=== PATIENT | male | born 1985 | race Caucasian/White ===

== ENCOUNTER 2019-03-19 07:29 | Emergency (ER) | payer OTHER ==
[2019-03-19 07:47] VITALS: BP 115/80
--- NOTE | 2019-03-19 08:04 | UC ---
Throat Pain/Nasal Umberto HPI - HPI Summary HPI Summary: sore throat x 5 day nasal congestion , dry cough with chest tightness sinus pain and pressure pnd, no fever, + chills has been taking otc cold meds with no improvements - History of Current Complaint Chief Complaint: UCGeneralIllness Stated Complaint: MEEK,CONGESTION,THROAT, COUGH Time Seen by Provider: 03/19/19 07:46 Hx Obtained From: Patient Onset/Duration: Gradual Onset, Lasting Days - 5, Still Present Severity: Moderate Pain Intensity: 0 Cough: Nonproductive Associated Signs & Symptoms: Positive: Nasal Discharge. Negative: Drooling, Hoarseness, Sinus Discomfort, Fever, Vomiting, Rash - Allergies/Home Medications Allergies/Adverse Reactions: Allergies Allergy/AdvReac Type Severity Reaction Status Date / Time Sulfa (Sulfonamide Allergy Unknown Rash Verified 03/19/19 07:47 Antibiotics) Home Medications: Home Medications Aspirin/Acetaminophen/Caffeine [Excedrin Migraine Caplet] 1 tab PO ONCE [History Confirmed 03/19/19] Chlorphenir/Phenyleph/Aspirin [[place] Plus Cold Tab Eff] 1 tab PO ONCE [History Confirmed 03/19/19] PMH/Surg Hx/FS Hx/Imm Hx Endocrine History: Diabetes, Thyroid Disease, Hypothyroidism - Surgical History Surgical History: Yes Surgery Procedure, Year, and Place: WISDOM TEETH EXTRACTIONS - Family History Known Family History: Positive: Hypertension - Social History Alcohol Use: Occasionally Substance Use Type: Marijuana Substance Use Comment - Amount & Last Used: occasionally Smoking Status (MU): Former Smoker Type: Cigarettes Amount Used/How Often: 3 CIGS PER DAY When Did the Patient Quit Smoking/Using Tobacco: September 2018 Review of Systems All Other Systems Reviewed And Are Negative: Yes Constitutional: Positive: Chills, Fatigue Skin: Positive: Negative Eyes: Positive: Negative ENT: Positive: Sore Throat, Nasal Discharge Respiratory: Positive: Cough Cardiovascular: Positive: Negative Is Patient Immunocompromised?: No Physical Exam Triage Information Reviewed: Yes Appearance: Well-Appearing, No Pain Distress, Well-Nourished Vital Signs: Initial Vital Signs Temp 97.8 F 03/19/19 07:42 Pulse 67 03/19/19 07:42 Resp 16 03/19/19 07:42 BP 115/80 03/19/19 07:42 Pulse Ox 100 03/19/19 07:42 Vital Signs Reviewed: Yes Eye Exam: Normal Eyes: Positive: Conjunctiva Clear ENT: Positive: Normal ENT inspection, Hearing grossly normal, Pharyngeal erythema, Nasal drainage, TMs normal. Negative: TM bulging, TM dull, TM red, Tonsillar swelling, Tonsillar exudate Neck: Positive: Supple, Nontender, No Lymphadenopathy Respiratory: Positive: Chest non-tender, Lungs clear, Normal breath sounds Cardiovascular: Positive: RRR, No Murmur, Pulses Normal Skin Exam: Normal Throat Pain/Nasal Course/Dx - Differential Dx/Diagnosis Provider Diagnosis: Pharyngitis Discharge - Sign-Out/Discharge Documenting (check all that apply): Patient Departure All imaging exams completed and their final reports reviewed: No Studies - Discharge Plan Condition: Stable Disposition: HOME Patient Education Materials: Upper Respiratory Infection (ED) Referrals: No Primary Care Phys,NOPCP [Primary Care Provider] - If Needed - Billing Disposition and Condition Condition: STABLE Disposition: Home
== END 2019-03-19 08:28 | disposition home or self-care (01) ==
LOC: UCCORT 07:29
DX: J02.9 Acute pharyngitis, unspecified (principal); Z88.2 Allergy status to sulfonamides; Z87.891 Personal history of nicotine dependence
CPT/HCPCS: 87651; 99211; G0463

== ENCOUNTER 2019-05-17 10:33 | Emergency (ER) | payer SELFPAY ==
[2019-05-17 12:07] VITALS: BP 117/90
--- NOTE | 2019-05-17 12:34 | UC ---
General HPI - HPI Summary HPI Summary: 33 yo insulin dependent diabetic with onset of malaise yesterday with increased fingerstick to 407, left work to manage this with additional insulin and fluids. Feels stable now, without any focus of infection, but needs a note for work absence and fitness to return to work. Current glucose is around 200 with decreased urinary ketones. Currently fatigued, but no fever, vomiting, dizziness, abdominal pain or cough. Management of diabetes with [facility]. - History of Current Complaint Chief Complaint: UCGeneralIllness Stated Complaint: TYPE 1 DIABETIC-CHECK GLUCOSE FOR WORK Time Seen by Provider: 05/17/19 12:24 Hx Obtained From: Patient Onset/Duration: Gradual Onset, Lasting Hours - about 36 Onset Severity: Moderate Current Severity: Mild Pain Intensity: 0 Associated Signs & Symptoms: Negative: Abdominal Pain, Back Pain, Cough, Dizziness, Dysuria, Headache, Nausea, Syncope - Allergy/Home Medications Allergies/Adverse Reactions: Allergies Allergy/AdvReac Type Severity Reaction Status Date / Time Sulfa (Sulfonamide Allergy Unknown Rash Verified 05/17/19 11:54 Antibiotics) Home Medications: Home Medications Ubidecarenone/Vitamin E [Co Q-10 50 mg Softgel] 1 each PO DAILY 05/17/19 [ History Confirmed 05/17/19] PMH/Surg Hx/FS Hx/Imm Hx Endocrine History: Diabetes - Surgical History Surgical History: Yes Surgery Procedure, Year, and Place: WISDOM TEETH EXTRACTIONS - Family History Known Family History: Positive: Hypertension, Diabetes - GM has type 2 - Social History Occupation: Employed Full-time Alcohol Use: Occasionally Substance Use Type: Marijuana Substance Use Comment - Amount & Last Used: occasionally Smoking Status (MU): Former Smoker Type: Cigarettes Amount Used/How Often: 3 CIGS PER DAY When Did the Patient Quit Smoking/Using Tobacco: September 2018 Review of Systems All Other Systems Reviewed And Are Negative: Yes Constitutional: Positive: Fatigue Respiratory: Positive: Negative Cardiovascular: Positive: Negative Gastrointestinal: Negative: Vomiting, Diarrhea, Nausea Genitourinary: Negative: Dysuria, Hematuria, Frequency Is Patient Immunocompromised?: No Physical Exam Triage Information Reviewed: Yes Appearance: Well-Appearing - looks a little fatigued, No Pain Distress, Well- Nourished Vital Signs: Initial Vital Signs Temp 98.8 F 05/17/19 11:57 Pulse 64 05/17/19 11:57 Resp 16 05/17/19 11:57 BP 117/90 05/17/19 11:57 Pulse Ox 100 05/17/19 11:57 ENT: Positive: Pharynx normal Neck: Positive: Supple, Nontender, No Lymphadenopathy Respiratory: Positive: Lungs clear, Normal breath sounds Cardiovascular: Positive: RRR, No Murmur Musculoskeletal Exam: Normal Neurological Exam: Normal Neurological: Positive: Alert Psychological Exam: Normal Skin Exam: Normal Course/Dx - Course Course Of Treatment: reviewed diabetes management plan; note given for work. - Diagnoses Provider Diagnosis: Hyperglycemia due to type 1 diabetes mellitus Discharge ED - Sign-Out/Discharge Documenting (check all that apply): Patient Departure All imaging exams completed and their final reports reviewed: No Studies - Discharge Plan Condition: Stable Disposition: HOME Patient Education Materials: Managing Diabetes During Sick Days (ED) Forms: *Work Release Referrals: No Primary Care Phys,NOPCP [Primary Care Provider] - Additional Instructions: Continue regular fingerstick readings and insulin management as per your diabetes care plan. - Billing Disposition and Condition Condition: STABLE Disposition: Home
== END 2019-05-17 12:45 | disposition home or self-care (01) ==
LOC: UCCORT 10:33
DX: E10.65 Type 1 diabetes mellitus with hyperglycemia (principal); Z79.4 Long term (current) use of insulin; Z88.2 Allergy status to sulfonamides; Z87.891 Personal history of nicotine dependence
CPT/HCPCS: 99211; G0463